=== PATIENT | female | born 1950 | race Caucasian/White ===

== ENCOUNTER 2018-04-19 17:41 | Inpatient (IN) ==
[2018-04-19] MEDS ORDERED: Dextrose Gel 15 GM/37.5 ML TUBE PO PRN ×2 (21:15)
[2018-04-19] MEDS ORDERED: *HR* Dextrose 50 % in Water (Syg) 50 ML SYRINGE IVP PRN (21:15)
[2018-04-19] MEDS ORDERED: D5% in Water 1,000 ML IVC PRN (21:15)
[2018-04-19] MEDS ORDERED: Sennosides/Docusate Sodium TABLET PO PRN (21:16)
[2018-04-19] MEDS ORDERED: *HR* OxyCODONE Immed Rel 5 MG TABLET PO PRN (21:22)
[2018-04-19] MEDS: *HR* OxyCODONE Immed Rel 5 MG TABLET PO PRN (22:43)
[2018-04-20 05:31] LABS: Basophils # 0.1 K/mcL (0.0-0.2); Basophils % 0.6 %; Eosinophils # 0.3 K/mcL (0.0-0.6); Eosinophils % 3.6 %; Hematocrit 32.3 % (35.3-44.9); Hemoglobin 10.5 g/dL (11.5-15.4); Immature Granulocytes % 0.5 % (0-4); Lymphocytes # 1.1 K/mcL (0.6-4.6); Lymphocytes % 13.7 %; Mean Corpuscular HGB Conc 32.5 g/dL (31.6-35.5); Mean Corpuscular Hemoglobin 29.1 pg (28.0-33.3); Mean Corpuscular Volume 89.5 fL (83.0-100.0); Mean Platelet Volume 10.5 fL (9.4-12.4); Monocytes # 0.5 K/mcL (0.0-1.3); Monocytes % 5.8 %; Platelet Count 263 K/mcL (140-400); Red Blood Count 3.61 M/mcL (3.82-4.97); Red Cell Distribution Width 14.2 % (11.5-14.5); Segmented Neutrophils % 75.8 %
[2018-04-20 05:46] LABS: INR 1.1; Prothrombin Time 12.8 Seconds (9.4-12.1)
[2018-04-20 05:47] LABS: BUN/Creatinine Ratio 19 (6-26); Blood Urea Nitrogen 16 mg/dL (8-23); Calcium 9.6 mg/dL (8.6-10.3); Carbon Dioxide 24 mEq/L (23-29); Chloride 104 mEq/L (98-107); Glucose 191 mg/dL (70-105); Osmolality,Calculated 294 (280-300); Sodium 139 mEq/L (136-145); eGFR For African Americans > 60 (> 60); eGFR For Non-African Americans > 60 (> 60)
[2018-04-20 05:49] LABS: Activated Partial Thrombo Time 35.3 Seconds (26.0-36.0)
[2018-04-20] MEDS: *HR* OxyCODONE Immed Rel 5 MG TABLET PO PRN ×3 (06:25→20:05)
[2018-04-20] MEDS: Insulin LISPRO 300 UNITS/3 ML VIAL SQ SCH ×4 (08:18→20:55)
[2018-04-20] MEDS: Fenofibrate 54 MG TABLET PO SCH (08:33)
[2018-04-20] MEDS: *HR* Rivaroxaban 10 MG TABLET PO SCH (08:33)
[2018-04-20] MEDS: Aspirin 81 MG TAB.CHEW PO SCH (08:33)
[2018-04-20] MEDS: Anastrozole 1 MG TABLET PO SCH (08:33)
[2018-04-20] MEDS: METFORMIN HCL 500 MG PO SCH (08:34)
[2018-04-20] MEDS: *HR* GlipiZIDE XL (24 HR) 2.5 MG TABLET PO SCH (08:34)
[2018-04-20] MEDS: LUTEIN 40 MG PO SCH (08:34)
[2018-04-20] MEDS: Loratadine 10 MG TABLET PO SCH (08:34)
[2018-04-20] MEDS: amLODIPine 5 MG TABLET PO SCH (08:34)
[2018-04-20] MEDS ORDERED: (Krill Oil [Krill Oil] 500 MG) PO SCH (09:00)
--- NOTE | 2018-04-20 12:40 | Internal Med History&Physical ---
Date of Encounter: 04/20/18 Time of Encounter: 12:22 Assessment and Plan (1) Postoperative pain of right knee Current visit: Yes Status: Acute Right TKR admitted for rehab and pain management. Pain has been well managed with current oral medications. Right knee noted to have moderate amount of edema and erythema surrounding surgical incision. Scant amount of drainage noted. Will start patient on Cleocin. Continue on PT/OT. (2) HTN (hypertension) Current visit: Yes Status: Chronic No acute issues. Vital signs were stable. We will continue with current medications. Qualifiers: Hypertension type: essential hypertension Qualified Code(s): I10 - Essential (primary) hypertension (3) Anxiety Current visit: Yes Status: Chronic Patient appears relaxed. No acute issues. We will continue with current medications (4) Diabetes mellitus Current visit: Yes Status: Chronic No acute issues. Patient continues with fingersticks and sliding scale coverage. Goal is to keep glucose less than 170 for healing. We will continue with current medication regimen. Qualifiers: Diabetes mellitus type: type 2 Diabetes mellitus supervisor stripping insulin use: without supervisor stripping use Diabetes mellitus complication status: without complication Qualified Code(s): E11.9 - Type 2 diabetes mellitus without complications Internal Medicine - H&P: HPI Chief complaint: right total knee replacement Admitted From: Intrahospital Transfer Plans for Post Hospital Care: Home History of present illness: Ms. Zabala is a 68 year old female ho has recent knee replacement to that right knee performed on 04/15 and was discharged to home. She later presented back to the hospital with sever knee pain. She is taking tramadol and Percocet at home, but the pain is too intense. Stated she is not able to get up and take care of herself. She was admitted for pain management and later transferred to this facility for rehab. Patient appears relaxed, but states that her pain has been moderate, but tolerable with current meds. Right knee appears swollen and ecchymotic. Mid- line knee incision is intact, but noted erythema and minimal amount of serous type drainage noted from knee. Patient denies any fever or chills. Past Med Surg Social Fam HX - Past Medical History Medical history: arthritis, asthma, cancer, diabetes, GERD, hyperlipidemia, hypertension, TIA, other Additional medical history: sleep apnea, breast cancer Psychiatric history: anxiety, bipolar - Past Surgical History Surgical History: cholecystectomy, other Additional surgical history: Breast reduction and lymph node removal - Social History Smoking Status: Never smoker Smokeless Tobacco Status: No Alcohol use: occasionally Drug use: none - Family History Daughter Adopted: [place]: inez Martinez Family Member Ethnicity: Non- Living Status: Still Living Hx Family Cardiac Disorders: Yes Hx Family Respiratory Disorders: Yes Hx Family Cancer: Yes Hx Family GI Disorders: No Hx Family Genitourinary Disorders: No Hx Family Endocrine Disorder: Yes Hx Family Musculoskeletal Disorders: No Hx Family Neuromuscular Disorders: No Hx Family Neurologic Disorders: No Hx Family HEENT Disorders: No Hx Family Autoimmune Disorders: No Hx Family Reproductive Disorders: No Hx Family Psychosocial Disorders: No Hx Family Medical Disorders: No Internal Medicine - H&P: Meds Calcium Carbonate [Calcium] 600 mg PO DAILY 09/17/16 [History] Cetirizine HCl [Zyrtec] 10 mg PO DAILY 09/17/16 [History] Krill Oil 500 mg PO DAILY 09/17/16 [History] Paroxetine HCl [Paxil] 10 mg PO DAILY 09/17/16 [History] Triamterene/Hydrochlorothiazid [Triamterene-Hctz 75-50 mg Tab] 1 tab PO DAILY [History] amLODIPine [Norvasc] 10 mg PO DAILY 09/17/16 [History] Aspirin 81 mg PO DAILY 12/23/16 [History] Losartan Potassium [Cozaar] 50 mg PO DAILY 12/23/16 [History] Pravastatin Sodium 5 mg PO DAILY 12/23/16 [History] Anastrozole [Arimidex] 1 mg PO DAILY 10/20/17 [History] Lutein 40 mg PO DAILY 10/20/17 [History] GlipiZIDE [Glucotrol Xl] 2.5 mg PO DAILY 04/17/18 [History] Metformin HCl [Metformin HCl ER] 500 mg PO DAILY 04/17/18 [History] Omeprazole [PriLOSEC] 20 mg PO DAILY 04/17/18 [History] Rivaroxaban [Xarelto] 10 mg PO DAILY 04/17/18 [History] Tramadol HCl [Ultram] 50 mg PO BID PRN 04/17/18 [History] Fenofibrate Nanocrystallized [Fenofibrate] 145 mg PO DAILY 04/18/18 [History] OxyCODONE Immed Rel [Roxicodone 5 MG] 5 mg PO Q6HR PRN 3 Days #12 tablet [Rx] Sennosides/Docusate Sodium [Senna Plus] 1 each PO DAILY PRN 04/19/18 [History] 3 Allergy/AdvReac Type Severity Reaction Status Date / Time Bee Pollen Allergy See Verified 01/12/18 10:06 Comments escitalopram [From Lexapro] AdvReac Vomiting Verified 01/12/18 10:06 Penicillins AdvReac Hives Verified 01/12/18 10:06 Sulfa (Sulfonamide AdvReac Vomiting Verified 01/12/18 10:06 Antibiotics) All Systems PM: A 10-system review of systems was performed and is negative for pertinent findings except as documented above in the HPI. - Constitutional Constitutional: no chills, no fever(s), no night sweats - EENT Eyes: no change in vision, no discharge, no pain, no photophobia Ears: no ear discharge, no ear pain, no tinnitus Nose, mouth and throat: no dysphagia, no nasal discharge, no neck pain, no sore throat - Cardiovascular Cardiovascular ROS IM: as per HPI, no chest pain, no diaphoresis, no dyspnea, no lightheadedness, no palpitations, no syncope - Respiratory Respiratory: as per HPI, no cough, no dyspnea, no wheezing, no excessive phlegm production - Gastrointestinal Gastrointestinal: no abdominal pain, no diarrhea, no hematemesis, no hematochezia, no melena, no nausea, no vomiting - Genitourinary Genitourinary: no change in urinary stream, no dysuria, no flank pain, no hematuria - Musculoskeletal Musculoskeletal ROS IM: as per HPI, no numbness, no tingling - Integumentary Integumentary IM: no rash, no unusual bruising - Neurological Neurological ROS: no confusion, no convulsions, no focal weakness, no numbness, no tingling, no tremor(s) - Hematologic/Lymphatic Hematologic/Lymphatic: no easy bruising - Constitutional Vitals: Temp Pulse Resp BP Pulse Ox 98.5 F 92 16 117/71 92 04/20/18 07:00 04/20/18 10:09 04/20/18 10:09 04/20/18 10:09 04/20/18 10:09 General appearance: Present: A&O X 3 - Head Head exam: Present: atraumatic, normocephalic - Eye Eye exam: Present: PERRL, conjuntiva pink, sclera anicteric Pupils: Present: PERRL - Neck Neck exam general surgery: Present: supple, trachea midline. Absent: lymphadenopathy - Respiratory Respiratory exam: Present: CTAB. Absent: accessory muscle use, rales, rhonchi, wheezes - Cardiovascular Cardiovascular exam: Present: RRR, +S1, +S2. Absent: diastolic murmur, gallop, rubs, systolic murmur - GI/Abdominal GI/Abdominal exam: Present: normal bowel sounds, soft, no peritoneal signs. Absent: distended, tenderness - Extremities Exam Extremities exam: Present: warm, radial pulses palpable and symmetrical. Absent : calf tenderness, cyanotic, pedal edema Additional comments: right knee appears swollen with echymosis. Midline incision is intact with erythema and scant serous drainage. Slgiht tenderness to palpation. - Neurological Exam Neurological exam: Present: CN II-XII intact, oriented X3, no focal deficits. Absent: pronater drift, facial droop, speech deficit - Skin Skin exam: Present: dry, intact Internal Med - H&P Results - Labs CBC & Chem 7: 04/20/18 05:10 04/20/18 05:10 Labs: Short CBC 04/20/18 Range/Units 05:10 WBC 8.0 (4.3-11.1) K/mcL Hgb 10.5 L (11.5-15.4) g/dL Hct 32.3 L (35.3-44.9) % Plt Count 263 (140-400) K/mcL Neutrophils # 6.0 (1.6-8.9) K/mcL BMP 04/20/18 05:10 Sodium 139 Potassium 4.0 Chloride 104 Carbon Dioxide 24 BUN 16 Creatinine 0.85 Glucose 191 H Calcium 9.6 - VTE Documentation of Mechanical Device: Intermittent pneumatic compression device
[2018-04-20] MEDS ORDERED: *HR* OxyCODONE Immed Rel 5 MG TABLET PO PRN (15:42)
[2018-04-20] MEDS: cephALEXin 500 MG CAPSULE PO SCH ×2 (16:08→20:04)
[2018-04-21] MEDS: *HR* OxyCODONE Immed Rel 5 MG TABLET PO PRN ×3 (05:55→14:52)
[2018-04-21 07:25] LABS: Basophils % 0.6 %; Eosinophils # 0.3 K/mcL (0.0-0.6); Eosinophils % 4.2 %; Hematocrit 31.6 % (35.3-44.9); Hemoglobin 10.2 g/dL (11.5-15.4); Immature Granulocytes % 0.6 % (0-4); Lymphocytes % 13.3 %; Mean Corpuscular HGB Conc 32.3 g/dL (31.6-35.5); Mean Corpuscular Hemoglobin 28.9 pg (28.0-33.3); Mean Corpuscular Volume 89.5 fL (83.0-100.0); Mean Platelet Volume 9.3 fL (9.4-12.4); Monocytes # 0.5 K/mcL (0.0-1.3); Monocytes % 7.3 %; Neutrophils # 5.3 K/mcL (1.6-8.9); Platelet Count 314 K/mcL (140-400); Red Blood Count 3.53 M/mcL (3.82-4.97); Red Cell Distribution Width 14.3 % (11.5-14.5)
[2018-04-21 07:42] LABS: Albumin 3.3 g/dL (3.5-5.7); Bilirubin,Total 0.4 mg/dL (0.3-1.0); Calcium 9.5 mg/dL (8.6-10.3); Globulin 3.2 g/dL (2.4-3.5); Total Protein 6.5 g/dL (6.4-8.9)
[2018-04-21] MEDS: *HR* Rivaroxaban 10 MG TABLET PO SCH (09:53)
[2018-04-21] MEDS: Anastrozole 1 MG TABLET PO SCH (09:53)
[2018-04-21] MEDS: *HR* GlipiZIDE XL (24 HR) 2.5 MG TABLET PO SCH (09:53)
[2018-04-21] MEDS: Loratadine 10 MG TABLET PO SCH (09:54)
[2018-04-21] MEDS: amLODIPine 5 MG TABLET PO SCH (09:54)
[2018-04-21] MEDS: Aspirin 81 MG TAB.CHEW PO SCH (09:54)
[2018-04-21] MEDS: Fenofibrate 54 MG TABLET PO SCH (09:54)
[2018-04-21] MEDS: LUTEIN 40 MG PO SCH (09:55)
[2018-04-21] MEDS: Insulin LISPRO 300 UNITS/3 ML VIAL SQ SCH ×4 (09:55→21:47)
[2018-04-21] MEDS: cephALEXin 500 MG CAPSULE PO SCH ×4 (09:55→20:35)
[2018-04-21] MEDS: METFORMIN HCL 500 MG PO SCH (09:59)
--- NOTE | 2018-04-21 10:05 | Internal Med Progress Note ---
Date of Encounter: 04/21/18 Time of Encounter: 10:02 - Assessment and plan (1) Postoperative pain of right knee Current Visit: Yes Status: Acute Assessment and plan: Patient continues to have moderate amount of edema to right knee with surgical incision showing continued erythema and small amount of serous type drainage. Surgical incision remains intact. Patient denies any fever or chills. Pain remains minimal to moderate with patient stating it is tolerable with current pain medications. Patient had been started on Keflex last evening and we will continue to follow closely. Inflammatory markers were drawn this morning and remain pending. (2) HTN (hypertension) Current Visit: Yes Status: Chronic Assessment and plan: Vital signs stable. We will continue with current medications. Qualifiers: Hypertension type: essential hypertension Qualified Code(s): I10 - Essential (primary) hypertension (3) Anxiety Current Visit: Yes Status: Chronic Assessment and plan: No issues. Patient appears relaxed (4) Diabetes mellitus Current Visit: Yes Status: Chronic Assessment and plan: No acute issues. Patient's glucose has been less than 200. We will continue with fingersticks and sliding scale coverage with goal of less than 170. We will continue with current medication regimen Qualifiers: Diabetes mellitus type: type 2 Diabetes mellitus machine long goods helper insulin use: without assisted use Diabetes mellitus complication status: without complication Qualified Code(s): E11.9 - Type 2 diabetes mellitus without complications - Time Spent With Patient less than 15 minutes - Subjective Interval history: Patient appears relaxed and currently denies any discomforts or shortness of breath. Patient states that her pain is been well-tolerated with current medication regimen. Denies any fever or chills. States that physical therapy has been going well and that she feels that she has been progressing. Noted continued small amount of serous type drainage to the right midline knee incision with moderate erythema. - Constitutional Vitals: Temp Pulse Resp BP Pulse Ox 98.5 F 88 16 110/66 95 04/21/18 07:00 04/21/18 07:00 04/21/18 07:00 04/21/18 07:00 04/21/18 07:00 General appearance: Present: A&O X 3 - Head Head exam: Present: atraumatic, normocephalic - Eye Eye exam: Present: PERRL, conjuntiva pink, sclera anicteric Pupils: Present: PERRL - Neck Neck exam general surgery: Present: supple, trachea midline. Absent: lymphadenopathy - Respiratory Respiratory exam: Present: CTAB. Absent: accessory muscle use, rales, rhonchi, wheezes - Cardiovascular Cardiovascular exam: Present: RRR, +S1, +S2. Absent: diastolic murmur, gallop, rubs, systolic murmur - GI/Abdominal GI/Abdominal exam: Present: normal bowel sounds, soft, no peritoneal signs. Absent: distended, tenderness - Extremities Exam Extremities exam: Present: warm, radial pulses palpable and symmetrical. Absent : calf tenderness, cyanotic, pedal edema Additional comments: Right knee appears swollen with a small amount of ecchymosis surrounding midline surgical incision. Incision noted to have moderate amount of erythema along the length of the incision with a small amount of serous type drainage. DEX hose in place - Neurological Exam Neurological exam: Present: CN II-XII intact, oriented X3, no focal deficits. Absent: pronater drift, facial droop, speech deficit - Skin Skin exam: Present: dry, intact Internal Medicine: Result - Labs CBC & Chem 7: 04/21/18 07:18 04/21/18 07:18 Labs: Short CBC 04/21/18 Range/Units 07:18 WBC 7.1 (4.3-11.1) K/mcL Hgb 10.2 L (11.5-15.4) g/dL Hct 31.6 L (35.3-44.9) % Plt Count 314 (140-400) K/mcL Neutrophils # 5.3 (1.6-8.9) K/mcL BMP 04/21/18 07:18 Sodium 138 Potassium 4.0 Chloride 102 Carbon Dioxide 29 BUN 24 H Creatinine 1.25 H Glucose 174 H Calcium 9.5 Liver Function 04/21/18 Range/Units 07:18 Total Bilirubin 0.4 (0.3-1.0) mg/dL AST 15 (13-39) Units/L ALT 32 (7-52) Units/L Alkaline Phosphatase 116 H (34-104) Units/L Albumin 3.3 L (3.5-5.7) g/dL - ABG Interpretation ABG results: PT/INR, D-dimer PT 12.8 Seconds (9.4-12.1) H 04/20/18 05:10 - VTE Documentation of Mechanical Device: Intermittent pneumatic compression device Consult Discharge Plan - Plan Referrals: Xenia Witt, [facility] [Primary Care Provider] -
[2018-04-22] MEDS: *HR* OxyCODONE Immed Rel 5 MG TABLET PO PRN ×3 (06:14→16:33)
[2018-04-22 07:38] VITALS: BP 102/57
[2018-04-22] MEDS: Anastrozole 1 MG TABLET PO SCH (09:46)
[2018-04-22] MEDS: Aspirin 81 MG TAB.CHEW PO SCH (09:46)
[2018-04-22] MEDS: amLODIPine 5 MG TABLET PO SCH (09:47)
[2018-04-22] MEDS: Loratadine 10 MG TABLET PO SCH (09:47)
[2018-04-22] MEDS: *HR* GlipiZIDE XL (24 HR) 2.5 MG TABLET PO SCH (09:47)
[2018-04-22] MEDS: Fenofibrate 54 MG TABLET PO SCH (09:47)
[2018-04-22] MEDS: *HR* Rivaroxaban 10 MG TABLET PO SCH (09:47)
[2018-04-22] MEDS: cephALEXin 500 MG CAPSULE PO SCH ×3 (09:48→16:33)
[2018-04-22] MEDS: METFORMIN HCL 500 MG PO SCH (09:48)
[2018-04-22] MEDS: Insulin LISPRO 300 UNITS/3 ML VIAL SQ SCH ×3 (09:48→16:34)
[2018-04-22] MEDS: LUTEIN 40 MG PO SCH (09:48)
--- NOTE | 2018-04-22 10:04 | Discharge Summary ---
Orders not resulted at time of discharge: Pending orders 04/20/18 20:06 EKG [ECG 12 lead ECG] [ECG] Routine 04/25/18 04:00 Basic Metabolic Panel MO Complete Blood Count [HEME] MO 05/02/18 04:00 Basic Metabolic Panel MO Complete Blood Count [HEME] MO 05/09/18 04:00 Basic Metabolic Panel MO Complete Blood Count [HEME] MO 05/16/18 04:00 Basic Metabolic Panel MO Complete Blood Count [HEME] MO 05/23/18 04:00 Basic Metabolic Panel MO Complete Blood Count [HEME] MO 05/30/18 04:00 Basic Metabolic Panel MO Complete Blood Count [HEME] MO 06/06/18 04:00 Basic Metabolic Panel MO Complete Blood Count [HEME] MO 06/13/18 04:00 Basic Metabolic Panel MO Complete Blood Count [HEME] MO 06/20/18 04:00 Basic Metabolic Panel MO Complete Blood Count [HEME] MO 06/27/18 04:00 Basic Metabolic Panel MO Complete Blood Count [HEME] MO Date of Encounter: 04/22/18 Time of Encounter: 10:01 - Discharge Diagnosis (1) Postoperative pain of right knee Priority: Primary Status: Acute Comments: Patient dissipated and physical therapy and progressed well. Right knee surgical incision remains intact but continues to have a small amount of serous type drainage noted. Patient has moderate amount of erythema surrounding surgical incision. ESR 67 and CRP 71. Patient was started on on Keflex and is to continue on Keflex for 7 more days. Patient has allergy to penicillin but has no noted reactions while taking Keflex. Patient is continue with home medications. Patient has to follow up with PCP and orthopedics (2) HTN (hypertension) Priority: Secondary Status: Chronic Comments: Vital signs are stable. We will continue with current medications. Qualifiers: Hypertension type: essential hypertension Qualified Code(s): I10 - Essential (primary) hypertension (3) Anxiety Priority: Secondary Status: Chronic Comments: He appears relaxed with no issues noted during stay of facility. 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 Zabala is a 68 year old female, who has recent knee replacement to that right knee performed on 04/15 and was discharged to home. She later presented back to the hospital with sever knee pain. She is taking tramadol and Percocet at home, but the pain is too intense. Stated she is not able to get up and take care of herself. She was admitted for pain management and later transferred to this facility for rehab. While at rehabilitation patient dissipated and physical therapy and progressed well. Patient's pain was well-controlled with oral medications. Patient denied any other issues. Patient's right knee remained swollen with surgical incision and citizen shown moderate amount of erythema surrounding. Incision remain intact and had a small amount of serous drainage noted. Patient was started on Keflex and will continue on Keflex for 7 days post discharge. Patient remained afebrile. ESR 67 and CRP was 71. We will have orthopedic surgeon notified and patient has existing follow-up visit scheduled. Patient to continue with home medications and follow-up with PCP. Discharge discussed with: patient Time spent discussing smoking cessation with patient: 3 to 10 minutes - Time Spent with Patient Total time spent providing and/or coordinating discharge services: Less than 30 minutes - Discharge Medications Home Medications: Calcium Carbonate [Calcium] 600 mg PO DAILY 09/17/16 [History] Cetirizine HCl [Zyrtec] 10 mg PO DAILY 09/17/16 [History] Krill Oil 500 mg PO DAILY 09/17/16 [History] Paroxetine HCl [Paxil] 10 mg PO DAILY 09/17/16 [History] Triamterene/Hydrochlorothiazid [Triamterene-Hctz 75-50 mg Tab] 1 tab PO DAILY [History] amLODIPine [Norvasc] 10 mg PO DAILY 09/17/16 [History] Aspirin 81 mg PO DAILY 12/23/16 [History] Losartan Potassium [Cozaar] 50 mg PO DAILY 12/23/16 [History] Pravastatin Sodium 5 mg PO DAILY 12/23/16 [History] Anastrozole [Arimidex] 1 mg PO DAILY 10/20/17 [History] Lutein 40 mg PO DAILY 10/20/17 [History] GlipiZIDE [Glucotrol Xl] 2.5 mg PO DAILY 04/17/18 [History] Metformin HCl [Metformin HCl ER] 500 mg PO DAILY 04/17/18 [History] Omeprazole [PriLOSEC] 20 mg PO DAILY 04/17/18 [History] Rivaroxaban [Xarelto] 10 mg PO DAILY 04/17/18 [History] Tramadol HCl [Ultram] 50 mg PO BID PRN 04/17/18 [History] Fenofibrate Nanocrystallized [Fenofibrate] 145 mg PO DAILY 04/18/18 [History] OxyCODONE Immed Rel [Roxicodone 5 MG] 5 mg PO Q6HR PRN 3 Days #12 tablet [Rx] Sennosides/Docusate Sodium [Senna Plus] 1 each PO DAILY PRN 04/19/18 [History] Allergies/Adverse Reactions: 3 Allergy/AdvReac Type Severity Reaction Status Date / Time Bee Pollen Allergy See Verified 01/12/18 10:06 Comments escitalopram [From Lexapro] AdvReac Vomiting Verified 01/12/18 10:06 Penicillins AdvReac Hives Verified 01/12/18 10:06 Sulfa (Sulfonamide AdvReac Vomiting Verified 01/12/18 10:06 Antibiotics) Date of admission: 04/19/18 19:24 Primary care physician: Xenia Witt CNP Consults: 04/19/18 21:09 Consult to Occupational Therapy [CONS] Routine Comment: Evaluate, develop and implement POC Reason for Consult: eval and treat Does patient have active BEDREST order?: No Is patient medically & hemodynamically stable?: Yes Patient assessed for mobility or mobilized this visit?: No Consult to Physical Therapy [CONS] Routine Comment: Evaluate, develop and implement POC Reason for Consult: eval and treat Does patient have active BEDREST order?: No Is patient medically & hemodynamically stable?: Yes Patient assessed for mobility or mobilized this visit?: No Consult to Recreational Therapy [CONS] Routine Comment: Evaluate, develop and implement POC Consult to Pulling Unit Operator [CONS] Routine Reason for SW Consult: eval and treat Discharging clinician: Meño Trivedi - Constitutional Vitals: Temp Pulse Resp BP Pulse Ox 97.9 F 85 16 102/57 92 04/22/18 07:30 04/22/18 07:30 04/22/18 07:30 04/22/18 07:30 04/22/18 07:30 General appearance: Present: A&O X 3 - Head Head exam: Present: atraumatic, normocephalic - Eye Eye exam: Present: PERRL, conjuntiva pink, sclera anicteric Pupils: Present: PERRL - Neck Neck exam general surgery: Present: supple, trachea midline. Absent: lymphadenopathy - Respiratory Respiratory exam: Present: CTAB. Absent: accessory muscle use, rales, rhonchi, wheezes - Cardiovascular Cardiovascular exam: Present: RRR, +S1, +S2. Absent: diastolic murmur, gallop, rubs, systolic murmur - GI/Abdominal GI/Abdominal exam: Present: normal bowel sounds, soft, no peritoneal signs. Absent: distended, tenderness - Extremities Exam Extremities exam: Present: warm, radial pulses palpable and symmetrical. Absent : calf tenderness, cyanotic, pedal edema Additional comments: Right knee remains swollen with midline surgical incision intact with a moderate amount of erythema surrounding the incision. Small amount of serous drainage noted. - Neurological Exam Neurological exam: Present: CN II-XII intact, oriented X3, no focal deficits. Absent: pronater drift, facial droop, speech deficit - Skin Skin exam: Present: dry, intact - Patient Status Disposition: Home Health Service Condition: Good Functional capacity at discharge: uses cane/walker Overall status at discharge: patient is progressing back to baseline - Discharge Instructions Follow Up With: Xenia Witt CNP [Primary Care Provider] - - Diet and Activity Activity: ambulate only with your walker, as per physical therapy, increase activity as tolerated, resume usual activities as tolerated Diet: diabetic diet, low fat, low cholesterol, low salt diet - VTE Documentation of Mechanical Device: Intermittent pneumatic compression device
--- NOTE | 2018-04-22 10:17 | Physician Discharge Referral ---
Home Health/Hosp Referral Info Transfer to: Home Health Provider in Charge Post Discharge: PCP - Diagnosis (1) Postoperative pain of right knee Priority: Primary Status: Acute (2) HTN (hypertension) Priority: Secondary Status: Chronic (3) Anxiety Priority: Secondary Status: Chronic (4) Diabetes mellitus Priority: Secondary Status: Chronic - Respiratory Orders Smoking Cessation: Smoking cessation has been advised. For more information, call the [place] Tobacco Quit Line at 5-142-NOYI-NOW. - Diet/Nutrition Diet/Nutrition Orders: No Concentrated Sweets - Activity Activity Orders: Up ad bobby, Walker - Services Needed Following services are medically necessary services: Nursing, Physical Therapy, Occupational Therapy - Transfer Medications Home Medications: Calcium Carbonate [Calcium] 600 mg PO DAILY 09/17/16 [History] Cetirizine HCl [Zyrtec] 10 mg PO DAILY 09/17/16 [History] Krill Oil 500 mg PO DAILY 09/17/16 [History] Paroxetine HCl [Paxil] 10 mg PO DAILY 09/17/16 [History] Triamterene/Hydrochlorothiazid [Triamterene-Hctz 75-50 mg Tab] 1 tab PO DAILY [History] amLODIPine [Norvasc] 10 mg PO DAILY 09/17/16 [History] Aspirin 81 mg PO DAILY 12/23/16 [History] Losartan Potassium [Cozaar] 50 mg PO DAILY 12/23/16 [History] Pravastatin Sodium 5 mg PO DAILY 12/23/16 [History] Anastrozole [Arimidex] 1 mg PO DAILY 10/20/17 [History] Lutein 40 mg PO DAILY 10/20/17 [History] GlipiZIDE [Glucotrol Xl] 2.5 mg PO DAILY 04/17/18 [History] Metformin HCl [Metformin HCl ER] 500 mg PO DAILY 04/17/18 [History] Omeprazole [PriLOSEC] 20 mg PO DAILY 04/17/18 [History] Rivaroxaban [Xarelto] 10 mg PO DAILY 04/17/18 [History] Tramadol HCl [Ultram] 50 mg PO BID PRN 04/17/18 [History] Fenofibrate Nanocrystallized [Fenofibrate] 145 mg PO DAILY 04/18/18 [History] OxyCODONE Immed Rel [Roxicodone 5 MG] 5 mg PO Q6HR PRN 3 Days #12 tablet [Rx] Sennosides/Docusate Sodium [Senna Plus] 1 each PO DAILY PRN 04/19/18 [History] Allergies/Adverse Reactions: 3 Allergy/AdvReac Type Severity Reaction Status Date / Time Bee Pollen Allergy See Verified 01/12/18 10:06 Comments escitalopram [From Lexapro] AdvReac Vomiting Verified 01/12/18 10:06 Penicillins AdvReac Hives Verified 01/12/18 10:06 Sulfa (Sulfonamide AdvReac Vomiting Verified 01/12/18 10:06 Antibiotics) Certification: Further, I certify that my clinical findings support that this patient is homebound (i.e. absences from home require considerable and taxing effort and are for medical reasons or jew services or infrequently or short duration when for other reasons) because: Homebound Reason: Leaving home requires considerable and taxing effort due to condition Attestation: My signature below is to certify that this patient is under my care and that I, or nurse practitioner, or a physician's periodontal assistant working with me, has a face-to -face encounter with this patient.
--- NOTE | 2018-04-22 17:48 | Electrocardiograph Report ---
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
== END 2018-04-22 16:30 | disposition home health service (06) | DRG 946 ==
LOC: INPGRE 19:24